=== PATIENT | female | born 1955 | race Caucasian/White ===

== ENCOUNTER 2019-08-23 13:03 | Emergency (ER) | payer MEDICAID ==
[~2019-08-23] VITALS: Ht 170.2 cm; Wt 71.1 kg
[2019-08-23 13:14] VITALS: BP 136/88
[2019-08-23] MEDS ORDERED: OXYcodone/APAP 5/325MG TABLET PO ONE (13:30)
[2019-08-23] MEDS ORDERED: L.E.T SOLUTION TP ONE ×2 (13:30→13:54)
[2019-08-23] MEDS ORDERED: OXYcodone/APAP 5/325MG TABLET ONE (13:54)
== END 2019-08-23 15:58 ==
LOC: ED 15:52
DX: S51.851A Open bite of right forearm, initial encounter (principal); S51.852A Open bite of left forearm, initial encounter; S51.052A Open bite, left elbow, initial encounter; W54.0XXA Bitten by dog, initial encounter; Y93.89 Activity, other specified; Y92.009 Unspecified place in unspecified non-institutional (private) residence as the place of occurrence of the external cause; Y99.8 Other external cause status
CPT/HCPCS: 29125; 29515; 99283